=== PATIENT | female | born 1995 ===

== ENCOUNTER 2016-12-12 23:18 | Emergency (ER) | payer SELFPAY ==
[~2016-12-12] VITALS: Ht 167.6 cm; Wt 107.0 kg
[2016-12-12 23:19] VITALS: BP 108/72
== END 2016-12-13 00:04 | disposition left against medical advice (07) ==
LOC: EMS 23:20
DX: N64.59 Other signs and symptoms in breast (principal); Z53.21 Procedure and treatment not carried out due to patient leaving prior to being seen by health care provider